=== PATIENT | male | born 1940 | race Caucasian/White ===

== ENCOUNTER 2017-07-17 20:31 | Emergency (ER) | payer MEDICARE ==
[~2017-07-17] VITALS: Ht 167.6 cm; Wt 71.0 kg
[~2017-07-17 20:31] MED LIST: AMLO5 PO; CENTTAB20 PO; GLIM2TAB PO; LISI-363 PO; LORA5SOL3 PO; PROT40TA PO; RANI150 PO; REME15TA PO; VESI10TA4 PO; XANA0.5T PO
[2017-07-17 20:34] VITALS: BP 148/89; PULSE 101; RESP 18; TEMP 99.3; O2SAT 93
[2017-07-17] MEDS ORDERED: PIPERACIL-TAZO 4.5 GM PREMIX 100 ML IV STA (20:55)
[2017-07-17] MEDS ORDERED: SODIUM CHLOR 0.9% 1000 ML INJ 1,000 ML IV ONE ×2 (20:55)
[2017-07-17] MEDS ORDERED: VANCOMYCIN INJ 1,000 MG in SODIUM CHLOR 0.9% 250 ML INJ 250 ML IV STA (20:55)
[2017-07-17] MEDS ORDERED: MORPHINE SULFATE 8 MG/ML INJ IV PUSH ONE (21:00)
[2017-07-17] MEDS ORDERED: METF500T PO (21:08)
[2017-07-17] MEDS ORDERED: ALPR.5 PO (21:08)
[2017-07-17] MEDS ORDERED: GLIM2TAB PO (21:08)
[2017-07-17] MEDS ORDERED: CLAR10CA3 PO (21:08)
[2017-07-17] MEDS ORDERED: MIRTA15 PO (21:08)
[2017-07-17] MEDS ORDERED: AMLO5TAB2 PO (21:08)
[2017-07-17] MEDS ORDERED: MULTTAB67 PO (21:08)
[2017-07-17] MEDS ORDERED: LISI20TA3 PO (21:08)
[2017-07-17] MEDS ORDERED: PANT40TA3 PO (21:08)
[2017-07-17] MEDS ORDERED: HYDR-2374 PO (21:08)
[2017-07-17 21:30] VITALS: BP 156/87; PULSE 101; RESP 16; TEMP 100.3; O2SAT 99
--- NOTE | 2017-07-17 21:31 | PD ---
HPI Chief Complaint: Oral / Dental Pain or Problem Time Seen by Provider: 20:53 Travel History International Travel<30 days: No Contact w/Intl Traveler<30days: No Traveled to known affect area: No History of Present Illness HPI The patient is a 77-year-old male that had oral surgery done last Tuesday, 5 days ago. The surgery was done by Dr. Rosado. Dr. Rosado apparently only practices at [facility]. The patient was given 10 hydrocodone tablets and he quickly ran out of those. He is not on any antibiotic. PFSH Past Medical History Anxiety: Yes Heart Rhythm Problems: No Cancer: Yes (CASTLEMAN'S DISEASE, ITP) Cardiovascular Problems: Yes High Cholesterol: No Chemotherapy: Yes (LAST ONE ONE YEAR) Diabetes: Yes Patient Takes Glucophage: Yes (07-17-17 1000) Diminished Hearing: No Endocrine: No Gastrointestinal Disorders: No GERD: Yes Genitourinary: Yes Hypertension: Yes Immune Disorder: No Implanted Vascular Access Dvce: Yes (BOWEL/BLADDER STIMULATOR) Musculoskeletal: No Neurologic: No Reproductive: No Respiratory: Yes Immunizations Current: Yes Sleep Apnea: Yes Thyroid Disease: No Tetanus Vaccination: < 5 Years Influenza Vaccination: Yes Past Surgical History Abdominal Surgery: Yes (APPENDECTOMY) Appendectomy: Yes Body Medical Devices: METAL IN R FLANK, UNKNOWN WHAT IT'S CALLED PER PT Eye Surgery: Yes (LASIC) Oral Surgery: Yes (IMPLANTS) Other Surgery: Yes Social History Alcohol Use: Yes (OCC) Tobacco Use: No (QUIT 1974) Substance Use: No Allergies-Medications (Allergen,Severity, Reaction): Coded Allergies: hydrocodone (Verified Allergy, Mild, Itching, 07/17/17) Reported Meds & Prescriptions Reported Meds & Active Scripts Active Augmentin (Amoxicillin-Clavulanate) 875-125 Mg Tab 1 Tab PO BID 10 Days Percocet (Oxycodone-Acetaminophen) 7.5-325 mg Tab 1 Tab PO Q4H PRN Reported Hydrocodone-Acetaminophen 10-300 Tab 1 Tab PO Q6H PRN Pantoprazole (Pantoprazole Sodium) 40 Mg Tab 40 Mg PO DAILY Amlodipine (Amlodipine Besylate) 5 Mg Tab 5 Mg PO DAILY Mirtazapine 15 Mg Tab 15 Mg PO HS Lisinopril-Hctz 20-25 Mg Tab 1 Tab PO DAILY Glimepiride 2 Mg Tab 2 Mg PO BIDAC Multiple Vitamin 1 Tab 1 Tab PO DAILY Claritin (Loratadine) 10 Mg Cap 10 Mg PO DAILY Metformin (Metformin HCl) 500 Mg Tab 500 Mg PO BIDPC Xanax (Alprazolam) 0.5 Mg Tab 0.5 Mg PO DAILY PRN Review of Systems Except as stated in HPI: all other systems reviewed are Neg Physical Exam Narrative GENERAL: The patient is alert, oriented 3 in moderate apparent distress with his right maxillary sinus pain and facial swelling. His vital signs show temperature 99.3, blood pressure 148/89 with a heart rate of 101 and the oximetry of 93% but otherwise normal. SKIN: Focused skin assessment warm/dry. HEAD: Atraumatic. Normocephalic. EYES: Pupils equal and round. No scleral icterus. No injection or drainage. ENT: No nasal bleeding or discharge. Mucous membranes pink and moist. NECK: Trachea midline. No JVD. CARDIOVASCULAR: Regular rate and rhythm. No murmur appreciated. RESPIRATORY: No accessory muscle use. Clear to auscultation. Breath sounds equal bilaterally. GASTROINTESTINAL: Abdomen soft, non-tender, nondistended. Hepatic and splenic margins not palpable. MUSCULOSKELETAL: No obvious deformities. No clubbing. No cyanosis. No edema. NEUROLOGICAL: Awake and alert. No obvious cranial nerve deficits. Motor grossly within normal limits. Normal speech. PSYCHIATRIC: Appropriate mood and affect; insight and judgment normal. DENTAL: No loose or chipped teeth. No malocclusion. Teeth 1, 2 and possibly 3 are missing and there is considerable swelling around this area. No drainable abscess is seen. Data Data Last Documented VS Vital Signs Date Time Temp Pulse Resp B/P (MAP) Pulse Ox O2 Delivery O2 Flow Rate FiO2 07/17/17 21:30 100.3 101 16 156/87 (110) 99 Room Air Orders Orders Complete Blood Count With Diff (07/17/17 20:55) Comprehensive Metabolic Panel (07/17/17 20:55) Prothrombin Time / Inr (Pt) (07/17/17 20:55) Act Partial Throm Time (Ptt) (07/17/17 20:55) Lactic Acid Sepsis Protocol (07/17/17 20:55) Blood Culture (07/17/17 20:55) Chest, Single Ap (07/17/17 20:55) Blood Glucose (07/17/17 20:55) Ecg Monitoring (07/17/17 20:55) Iv Access Insert/Monitor (07/17/17 20:55) Oximetry (07/17/17 20:55) Oxygen Administration (07/17/17 20:55) Morphine Inj (Morphine Inj) (07/17/17 21:00) Sodium Chlor 0.9% 1000 Ml Inj (Ns 1000 M (07/17/17 20:55) Sodium Chlor 0.9% 1000 Ml Inj (Ns 1000 M (07/17/17 20:55) Vancomycin Inj (Vancomycin Inj) (07/17/17 20:55) Piperacil-Tazo 4.5 Gm Premix (Zosyn 4.5 (07/17/17 20:55) Ct Sinuses W/O Iv Contrast (07/17/17 ) Ondansetron Inj (Zofran Inj) (07/17/17 21:45) Labs Laboratory Tests Test 07/17/17 21:30 White Blood Count 10.7 TH/MM3 Red Blood Count 4.09 MIL/MM3 Hemoglobin 13.1 GM/DL Hematocrit 37.2 % Mean Corpuscular Volume 90.9 FL Mean Corpuscular Hemoglobin 31.9 PG Mean Corpuscular Hemoglobin Concent 35.1 % Red Cell Distribution Width 12.6 % Platelet Count 189 TH/MM3 Mean Platelet Volume 7.2 FL Neutrophils (%) (Auto) 70.8 % Lymphocytes (%) (Auto) 16.7 % Monocytes (%) (Auto) 11.4 % Eosinophils (%) (Auto) 0.3 % Basophils (%) (Auto) 0.8 % Neutrophils # (Auto) 7.6 TH/MM3 Lymphocytes # (Auto) 1.8 TH/MM3 Monocytes # (Auto) 1.2 TH/MM3 Eosinophils # (Auto) 0.0 TH/MM3 Basophils # (Auto) 0.1 TH/MM3 CBC Comment DIFF FINAL Differential Comment Prothrombin Time 11.2 SEC Prothromb Time International Ratio 1.0 RATIO Activated Partial Thromboplast Time 28.9 SEC Blood Urea Nitrogen 20 MG/DL Creatinine 1.20 MG/DL Random Glucose 139 MG/DL Total Protein 7.8 GM/DL Albumin 3.4 GM/DL Calcium Level 8.7 MG/DL Alkaline Phosphatase 66 U/L Aspartate Amino Transf (AST/SGOT) 14 U/L Alanine Aminotransferase (ALT/SGPT) 25 U/L Total Bilirubin 0.7 MG/DL Sodium Level 133 MEQ/L Potassium Level 4.1 MEQ/L Chloride Level 99 MEQ/L Carbon Dioxide Level 26.3 MEQ/L Anion Gap 8 MEQ/L Estimat Glomerular Filtration Rate 59 ML/MIN Lactic Acid Level 0.9 mmol/L MDM Medical Decision Making Medical Screen Exam Complete: Yes Emergency Medical Condition: Yes Medical Record Reviewed: Yes Differential Diagnosis Sinusitis, facial abscess, cellulitis cheek Narrative Course Patient has a buccal cellulitis related to the dental work. His CT scan was unremarkable regarding abscess formation. The swelling appears to be simply cellulitis. He is given Augmentin 875 twice daily and has been given antibiotics IV here. Tomorrow morning he should call Dr. Rosado. Diagnosis Primary Impression: Cellulitis of face Additional Impression: Dental infection Additional Instructions: As we discussed, if you have problems getting Dr. Rosado, he will probably have to return to the emergency department. Do not drink alcohol or drive on the Percocet. The antibiotic is one tablet twice daily. Med/Other Pt SpecificInfo: Prescription(s) given Scripts Amoxicillin-Clavulanate (Augmentin) 875-125 Mg Tab 1 TAB PO BID for Infection for 10 Days, #20 TAB 0 Refills Prov: Donn Desouza MD 07/17/17 Oxycodone-Acetaminophen (Percocet) 7.5-325 mg Tab 1 TAB PO Q4H Y for PAIN, #30 TAB 0 Refills Prov: Donn Desouza MD 07/17/17 Disposition: 01 DISCHARGE HOME Condition: Stable Donn Desouza MD Jul 17, 2017 21:31
--- NOTE | 2017-07-17 21:33 | RADRPT ---
EXAM DATE/TIME: 07/17/2017 21:08 [facility] COMPARISON: CHEST PA & LAT, March 19, 2014, 16:54. INDICATIONS : Post surgical fever. MEDICAL HISTORY : Hypertension. SURGICAL HISTORY : Oral surgery. ENCOUNTER: Initial ACUITY: 1 day PAIN SCORE: 0/10 LOCATION: Bilateral chest FINDINGS: Portable AP view of the chest demonstrates a normal-sized cardiac silhouette. No effusion, consolidat ion, or pneumothorax is visualized. The bones and soft tissues demonstrate no acute abnormality. CONCLUSION: No acute cardiopulmonary abnormality is identified. Sandeep Qureshi MD on July 17, 2017 at 21:31 Board Certified Radiologist. This report was verified electronically.
[2017-07-17 21:40] LABS: AUTOMATED NEUTROPHIL # 7.6 TH/MM3 (1.8-7.7); BASOPHIL # 0.1 TH/MM3 (0-0.2); BASOPHIL % 0.8 % (0.0-2.0); EOSINOPHIL % 0.3 % (0.0-4.0); HEMATOCRIT 37.2 % (39.0-51.0); HEMO FLAGS DIFF FINAL; LYMPH % 16.7 % (9.0-44.0); LYMPHOCYTE # 1.8 TH/MM3 (1.0-4.8); MEAN CELL VOLUME 90.9 FL (80.0-100.0); MEAN CORPUSCULAR HEMOGLOBIN 31.9 PG (27.0-34.0); MEAN CORPUSCULAR HGB CONC 35.1 % (32.0-36.0); MONO % 11.4 % (0.0-8.0); NEUT % 70.8 % (16.0-70.0); PLATELET COUNT 189 TH/MM3 (150-450); RED BLOOD COUNT 4.09 MIL/MM3 (4.50-5.90); RED CELL DISTRIBUTION WIDTH 12.6 % (11.6-17.2); WHITE BLOOD COUNT 10.7 TH/MM3 (4.0-11.0)
[2017-07-17] MEDS ORDERED: ONDANSETRON HCL 4 MG/2 ML VIAL IV ONE (21:45)
[2017-07-17 21:51] LABS: CHLORIDE 99 MEQ/L (98-107); POTASSIUM 4.1 MEQ/L (3.5-5.1); SODIUM (NA) 133 MEQ/L (136-145)
[2017-07-17 21:55] LABS: ANION GAP 8 MEQ/L (5-15); BICARBONATE 26.3 MEQ/L (21.0-32.0); BLOOD UREA NITROGEN 20 MG/DL (7-18)
[2017-07-17 21:57] LABS: APTT (PATIENT) 28.9 SEC (24.3-30.1); PROTHROMBIN TIME - PATIENT 11.2 SEC (9.8-11.6)
[2017-07-17 21:58] LABS: ALT (GPT) 25 U/L (12-78); AST (GOT) 14 U/L (15-37); GLOMERULAR FILTRATION RATE 59 ML/MIN (>89)
[2017-07-17 21:59] LABS: TOTAL BILIRUBIN ADULT 0.7 MG/DL (0.2-1.0)
[2017-07-17 22:01] LABS: ALKALINE PHOSPHATASE 66 U/L (45-117)
--- NOTE | 2017-07-17 22:24 | RADRPT ---
EXAM DATE/TIME: 07/17/2017 21:54 [facility] COMPARISON: No previous studies available for comparison. INDICATIONS : Right facial pain and swelling post implant removal. Evaluate for abscess. RADIATION DOSE: 25.34 CTDIvol (mGy) MEDICAL HISTORY : None SURGICAL HISTORY : None. ENCOUNTER: Initial ACUITY: 4 - 6 days PAIN SCORE: 6/10 LOCATION: Right facial TECHNIQUE: Volumetric scanning of the paranasal sinuses was performed. Using automated exposure control and adj ustment of the mA and/or kV according to patient size, radiation dose was kept as low as reasonably a chievable to obtain optimal diagnostic quality images. DICOM format image data is available electro nically for review and comparison. FINDINGS: Extensive dental hardware causes beam hardening artifact severely limiting visualization of structure s adjacent to the maxilla and mandible. There is mucoperiosteal thickening with fluid in the right maxillary antrum. Bone density material is present in the inferior maxillary antrum likely related to bone graft procedure. There is a right fa cial soft tissue swelling with subcutaneous edema and subcutaneous air. No well-defined fluid collect ion is appreciated given the limitations on this noncontrast study. Intracranial structures and globes demonstrate no acute finding. CONCLUSION: 1. Right facial soft tissue swelling with subcutaneous edema and subcutaneous air. Air can be seen se condary to a recent procedure but also could be signs of infection. There is poor visualization of th e adjacent soft tissues secondary to the artifact from the patient's hardware. However, no definite a bscess is seen. 2. There is mucoperiosteal thickening with fluid in the right maxillary antrum. Changes are present i n the inferior right maxillary sinus suggesting bone grafting procedure. Sandeep Qureshi MD on July 17, 2017 at 22:18 Board Certified Radiologist. This report was verified electronically.
[2017-07-17] MEDS ORDERED: PERC7.5T13 PO (23:27)
[2017-07-17] MEDS ORDERED: AUGM875T3 PO (23:27)
[2017-07-17] MEDS ORDERED: oxyCODONE/ACETAMINOPHEN 7.5 MG/325 MG TAB PO ONE (23:45)
[2017-07-17 23:52] VITALS: BP 156/72; PULSE 88; RESP 16; TEMP 99; O2SAT 100
[2017-07-18 00:23] VITALS: BP 148/72
== END 2017-07-18 00:25 | disposition home or self-care (01) ==
LOC: PHED 20:31
DX: L03.211 Cellulitis of face (principal); K04.7 Periapical abscess without sinus; I10 Essential (primary) hypertension; E11.9 Type 2 diabetes mellitus without complications; B95.7 Other staphylococcus as the cause of diseases classified elsewhere; Z79.84 Long term (current) use of oral hypoglycemic drugs; Z87.891 Personal history of nicotine dependence
CPT/HCPCS: 70486; 71010; 80053; 83605; 85025; 85610; 85730; 86403; 87040; 87205; 96365; 96366; 96375; 99284; J2270; J2405; J2543; J3370; J7030; J7050